=== PATIENT | female | born 1980 | race Caucasian/White ===

== ENCOUNTER 2016-12-25 08:55 | Inpatient (IN) | payer BC ==
[~2016-12-25 08:55] MED LIST: CITRIC ACID/SODIUM CITRATE 30 ML UNIT-DOSE CUP PO ONE; ELECTROLYTE-148 SOLN 1,000 ML IV ONE
[2016-12-25] MEDS: ELECTROLYTE-148 SOLN 1,000 ML IV SCH (10:15)
[2016-12-25 10:20] VITALS: BMI 44.9
[2016-12-25] MEDS ORDERED: ONDANSETRON 4 MG/2 ML VIAL IVPB PRN (10:29)
[2016-12-25] MEDS ORDERED: morphine SULFATE/Preservative Free 0.5 MG/ML (1cc Syringe) EP ONE (10:29)
[2016-12-25] MEDS ORDERED: TUBERCULIN PPD 5 TU/0.1ML SYRINGE (IN PATIENT USE ONLY) ID ONE (10:30)
--- NOTE | 2016-12-25 11:22 | HP ---
Past Medical History - Primary Care Physician PCP:: Wayne Odonnell - Admission Chief Complaint: 36yo P1 with at EGA 39w3d and prior C/S, marginal placenta previa, admitted for repeat section. History of Present Illness: AMA Morbid obesity Prior C/S Marginal previa History Source: Patient, Medical Record Limitations to Obtaining History: No Limitations - Past Medical History A/C TECH: No: Alzheimer's, CVA, Dementia, Migraine, Multiple Sclerosis, Peripheral Neuropathy, Parkinson's, Seizure, Syncope, TIA, Vertigo, Other Cardiovascular: No: AFIB, Aneurysm, Aortic Insufficiency, Aortic Stenosis, CAD, CHF, Deep Vein Thrombosis, HTN, Hyperlipdemia, [place], Mitral Insufficiency, Mitral Stenosis, Murmur, Pulmonary Hypertension, Other Pulmonary: No: Asthma, Bronchitis, Cancer, COPD, O2 Dependent, Pneumonia, Previously Intubated, Pulmonary Embolus, Pulmonary Fibrosis, Sleep Apnea, Other Gastrointestinal: No: Ascites, Cancer, Constipation, Crohn's Disease, Diverticulitis, Diverticulosis, Esophageal Varices, Gastritis, GERD, GI Bleed, Hemorrhoids, Hiatal Hernia, Inflamatory Bowel Disease, Irritable Bowel Disease, Pancreatitis, Peptic Ulcer Disease, Ulcerative Colitis, Other Hepatobiliary: No: Cirrhosis, Cholelithiasis, Cholecystitis, Choledocholithiasis , Hepatitis A, Hepatitis B, Hepatitis C, Other Renal/: No: Renal Failure, Renal Inusuff, BPH, Cancer, Hematuria, Hemodialysis , Neurogenic Bladder, Renal Calculi, UTI, Other ...: 2 ...Para: 1 ...Term: 1 ...: 0 ...Spon : 0 ...Induced : 0 ...Multiple Gestation: 0 ...LMP: 03/19/16 ... Weeks Gestation by Dates: 40.1 ...EDC by Dates: 12/25/15 ...EDC by Sono: 12/30/15 Heme/Onc: Yes: Anemia Infectious Disease: No: AIDS, C-Diff, Herpes Zoster, HIV, MRSA, STD's, Tuberculosis, VREF, Other Psych: No: Addictions, Anxiety, Bipolar, Depression, Panic, Psychosis, Schizophrenia, Other Musculoskeletal: No: Bursitis, Chronic low back pain, Hemiparesis, Hemiplegia, Osteoarthritis, Paraplegia, Other Rheumatology: No: Fibromyalgia, Gout, Lupus, Rheumatoid Arthritis, Sarcoidosis, Vasculitis, Other ENT: No: Allergic Rhinitis, Sinusitis, Other Endocrine: No: Willian's Disease, Bismarck's Disease, Diabetes Insipidus, Diabetes Mellitus, Hyperparathyroidism, Hyperthyroidism, Hypothyroidism, Osteopenia, SIADH, Other Dermatology: No: Basal Cell, Cellulitis, Eczema, Melanoma, Psoriasis, Squamous Cell, Other - Past Surgical History Past Surgical History: Yes: Hx Myomectomy: No Hx Transabdominal Cerclage: No - Smoking History Smoking history: Never smoked Have you smoked in the past 12 months: No Aproximately how many cigarettes per day: 0 - Alcohol/Substance Use Hx Alcohol Use: No History of Substance Use: reports: None - Social History Usual Living Arrangement: Yes: With Spouse, With Child ADL: Independent History of Recent Travel: No Home Medications - Allergies Allergies/Adverse Reactions: Allergies Allergy/AdvReac Type Severity Reaction Status Date / Time No Known Allergies Allergy Verified 09/01/13 15:20 - Home Medications Home Medications: Ambulatory Orders Vitamins (Sjr) - 1 tab PO DAILY 09/01/13 Acetaminophen W/ Codeine #3 [Tylenol # 3 -] 1 tab PO Q8H #30 tablet 09/07/13 Acetaminophen [Tylenol .Regular Strength -] 650 mg PO Q4H PRN #0 tablet Ibuprofen [Motrin -] 600 mg PO Q4H PRN #0 tablet 09/07/13 Family Disease History - Family Disease History Family History: Denies Review of Systems - Review of Systems Constitutional: reports: No Symptoms Eyes: reports: No Symptoms HENT: reports: No Symptoms Neck: reports: No Symptoms Cardiovascular: reports: No Symptoms Respiratory: reports: No Symptoms Gastrointestinal: reports: No Symptoms Genitourinary: reports: No Symptoms Breasts: reports: No Symptoms Reported Musculoskeletal: reports: No Symptoms Integumentary: reports: No Symptoms Neurological: reports: No Symptoms Endocrine: reports: No Symptoms Hematology/Lymphatic: reports: No Symptoms Psychiatric: reports: No Symptoms Pain Intensity: 0 Physical Exam - Maternity Vital Signs: Vital Signs Temperature 97.7 F 12/25/16 11:00 Pulse Rate 79 12/25/16 11:00 Respiratory Rate 18 12/25/16 11:00 Blood Pressure 118/54 12/25/16 11:00 O2 Sat by Pulse Oximetry (%) Constitutional: Yes: No Distress, Calm, Obese Eyes: Yes: WNL, Conjunctiva Clear HENT: Yes: WNL, Atraumatic, Normocephalic Neck: Yes: WNL, Supple, Trachea Midline Cardiovascular: Yes: WNL, Regular Rate and Rhythm Lungs: Clear to auscultation, Normal air movement Breast(s): Yes: WNL - Abdominal Exam/OB Fundal Height: 40 Number of Fetuses: Single Presentation: Vertex Contractions: No Monitor Mode: External Heart Rate (range): 140 Heart Rate Location: Midline Category: I Accelerations: Uniform Decelerations: None - Vaginal Exam/OB Vaginal Bleediing: No Speculum Exam: No Amniotic Membrane Status: Intact Presentation: Vertex/Position - Physical Exam Musculoskeletal: Yes: WNL Extremities: Yes: WNL Edema: Yes Edema: LLE: 1+, RLE: 1+ Integumentary: Yes: WNL Deep Tendon Reflex Grade: Normal +2 ...Motor Strength: WNL Psychiatric: Yes: WNL, Alert, Oriented Hemorrhage Risk Assessment - Risk Factors Medium Risk Factors: Yes: Obesity (BMI >40) High Risk Factors: Yes: Placenta previa, low lying Risk Score: 3 Risk Level: High Risk Imaging - Results Ultrasound: Report Reviewed Assessment/Plan 36yo P1 with at EGA 39w3d and prior C/S, marginal placenta previa, admitted for repeat section. The pt is not in labor, not bleeding. The fetus has Category I tracing and requires no intervention. We discussed the risks and benefits of C/S at length, including but not limited to scarring, pain , bleeding, infection, injury to underlying organs and structures, need for additional surgery to repair/treat any problems or complications, complications/injuries, etc. The pt verbalized her understanding and requested to proceed with surgery.
[2016-12-25] MEDS ORDERED: METHYLERGONOVINE MALEATE 0.2 MG/1 ML AMP IM PRN (12:20)
--- NOTE | 2016-12-25 12:59 | OP ---
Operative Note - Note: Operative Date: 12/25/16 Pre-Operative Diagnosis: at EGA 39w3d. Morbid Obesity. Marginal previa. Prior C/S Operation: Repeat LT C/S Findings: Normal uterus, ovaries, tubes. Multiple varicose venous complexes Post-Operative Diagnosis: Same as Pre-op Surgeon: Wayne Odonnell Globe Cleaner: Tonya Fallon (\) Anesthesiologist/EQUINE PHARMACOLOGY TECHNICIAN: Jamel Combs Anesthesia: Spinal Specimens Removed: Placenta Estimated Blood Loss (mls): 1,000 Drains & Tubes with Location: Liz cath Drains, Volume Out (mls): 200 Blood Volume Replaced (mls): 0 Fluid Volume Replaced (mls): 1,500 Operative Report Dictated: Yes
[2016-12-25 13:12] LABS: ARTERIAL BLD GAS O2 SATURATION 35.2 % (90-98.9); ARTERIAL BLOOD GAS BASE EXCESS 1.9 meq/l (-2-2); ARTERIAL BLOOD GAS HCO3 27.6 meq/L (22-26); ARTERIAL BLOOD GAS pH 7.36 (7.35-7.45)
[2016-12-25 13:14] LABS: LPM/O2% N; ON ANTICOAG? ROOM AIR; PT. ON O2? YES; TYPE OF O2 21%
[2016-12-25 13:15] LABS: ARTERIAL BLOOD GAS PO2 19.4 mmHg (80-100)
[2016-12-25] MEDS: OXYTOCIN 20 UNITS in 0.9% NS 1,000 ML IV SCH ×2 (14:26→21:43)
[2016-12-25] MEDS: IBUPROFEN 800 MG/8 ML IJ IVPB PRN (22:18)
[2016-12-26] MEDS: IBUPROFEN 800 MG/8 ML IJ IVPB PRN (06:37)
[2016-12-26 08:02] LABS: BASOPHIL 0.2 % (0-2.0); EOSINOPHIL 0.7 % (0-4.5); MCH 27.4 pg (25.7-33.7); MCHC 33.1 g/dl (32.0-36.0); MEAN CELL VOLUME 82.8 fl (80-96); MEAN PLT VOLUME 7.8 fl (7.5-11.1); NEUTROPHILS 72.6 % (42.8-82.8); PLATELET COUNT 203 K/MM3 (134-434); WHITE BLOOD COUNT 10.4 K/mm3 (4.0-10.0)
--- NOTE | 2016-12-26 08:47 | PN ---
Post Progress Note - Subjective Subjective: 36 yo P2 s/p Repeat c/s for marginal previa in bed, yao not d/saul, no flatus, c/o congestion, and hand numbness Post Day: 1 Type of Delivery: Repeat C/S Vital Signs: Vital Signs Temperature 99.2 F 12/26/16 06:30 Pulse Rate 68 12/26/16 06:30 Respiratory Rate 20 12/26/16 06:30 Blood Pressure 109/60 12/26/16 06:30 O2 Sat by Pulse Oximetry (%) 99 12/25/16 14:10 Breast Exam: Yes: Soft Uterus: Yes: Fundus Firm Incision: Yes: Dressing dry and intact Abdomen/GI: Yes: Abdomen soft Lochia: Yes: Rubra Lochia, amount: Small Extremities: Yes: Calves non-tender Activity: Other (in bed) - Labs Labs: CBC WBC 10.4 K/mm3 (4.0-10.0) H 12/26/16 06:00 RBC 3.14 M/mm3 (3.60-5.2) L D 12/26/16 06:00 Hgb 8.6 GM/dL (10.7-15.3) L D 12/26/16 06:00 Hct 26.0 % (32.4-45.2) L D 12/26/16 06:00 MCV 82.8 fl (80-96) 12/26/16 06:00 MCH 27.4 pg (25.7-33.7) 12/26/16 06:00 MCHC 33.1 g/dl (32.0-36.0) 12/26/16 06:00 RDW 15.0 % (11.6-15.6) 12/26/16 06:00 Plt Count 203 K/MM3 (134-434) D 12/26/16 06:00 MPV 7.8 fl (7.5-11.1) 12/26/16 06:00 Neutrophils % 72.6 % (42.8-82.8) 12/26/16 06:00 Lymphocytes % 14.2 % (8-40) 12/26/16 06:00 Monocytes % 12.3 % (3.8-10.2) H 12/26/16 06:00 Eosinophils % 0.7 % (0-4.5) 12/26/16 06:00 Basophils % 0.2 % (0-2.0) 12/26/16 06:00 Assessment/Plan 36 yo P2 s/p Repeat c/s for marginal previa VSS, Afibrile d/c yao, encourage ambulation Upper airway congestion - Musinex, Insentive spiromiter Hand numbness - Will d/c IV once voids Rh positive, no need for RhoGam H/H appropriate for PostOp cont. routine postop care
[2016-12-26] MEDS: ENOXAPARIN NA (PORCINE) 40 MG/0.4 ML DISP.SYRIN SQ SCH (09:30)
[2016-12-26] MEDS: PRENATAL VITAMINS W/ FOLIC ACID TABLET (FP) PO SCH (09:31)
[2016-12-26] MEDS: ELECTROLYTE-148 SOLN 1,000 ML IV SCH (09:50)
[2016-12-26] MEDS: guaiFENesin 600 MG TABLET.ER (FP) PO SCH ×2 (10:00→22:16)
[2016-12-26] MEDS: oxyCODONE HCL 5 MG TABLET PO PRN ×2 (11:24→16:14)
[2016-12-26] MEDS: SIMETHICONE 80 MG TAB.CHEW (FP) PO PRN ×3 (11:24→22:16)
[2016-12-26] MEDS: IBUPROFEN 600 MG TABLET (FP) PO PRN ×2 (11:25→16:12)
[2016-12-26] MEDS ORDERED: BISACODYL 10 MG SUPP.RECT RC PRN (12:21)
[2016-12-26] MEDS: OXYTOCIN 20 UNITS in 0.9% NS 1,000 ML IV SCH (12:30)
[2016-12-26] MEDS ORDERED: DIPHTH,PERTUSS(ACELL),TET 0.5 ML DISP.SYRIN IM ONE (14:00)
--- NOTE | 2016-12-26 14:38 | OP ---
DATE OF OPERATION: 12/25/2016 POSTOPERATIVE DIAGNOSIS: at estimated gestational age of 39 weeks and 3 days, maternal morbid obesity, marginal placenta previa, previous section. POSTOPERATIVE DIAGNOSIS: at estimated gestational age of 39 weeks and 3 days, delivered. Maternal morbid obesity, marginal placenta previa, previous section. PROCEDURE: Repeat low transverse section via Pfannenstiel skin incision. SURGEON: Wayne Odonnell MD SKIVER OPERATOR: Tonya Fallon MD INDICATIONS FOR SKIVER OPERATOR: Multiple patient comorbidities and surgical complexity requiring operating room surgical technologist for patient safety and to enable performance of the procedure. ANESTHESIA: Jamel Combs MD ANESTHESIA: Spinal. ESTIMATED BLOOD LOSS: 1000 mL. URINE OUTPUT: 200 mL. INTRAVENOUS FLUIDS: 1500 mL of crystalloids. PATHOLOGY: Placenta. FINDINGS: Live baby girl in vertex presentation. No meconium in amniotic fluid. Multiple venous varicose complexes throughout, including subcutaneous tissue and around the lower uterine segment. Normal ovaries, fallopian tubes, and normal uterus above lower uterine segment. DESCRIPTION OF PROCEDURE: The patient was met preoperatively. Risks, benefits, alternatives of surgery were discussed in detail. All questions were answered. The patient was then brought to the OR with IV running. She was placed on the surgical table in the sitting position. The spinal anesthesia was achieved without difficulty. The patient was then placed in a supine position with leftward tilt. She was prepped and draped in the usual sterile fashion. A Liz catheter was inserted and left to drain to gravity. The timeout was conducted as per standard protocol. The surgeons then proceeded with the operation. A Pfannenstiel skin incision was made with a knife along the prior scar. The incision was carried down to the level of fascia. There were multiple venous sinuses and varicose complexes subcutaneously. Good hemostasis was maintained. The fascia was incised in the midline, and the incision was extended bilaterally using Tristan scissors. The fascia was then dissected away from the rectus muscles superiorly and inferiorly. The rectus muscle was in the midline. The peritoneum was identified and entered sharply. The peritoneal incision was extended superiorly and inferiorly. The bladder peritoneum was dissected away from the lower uterine segment using sharp dissection. The bladder was then reflected downwards. The uterus was incised transversely in the lower uterine segment. The uterine incision was extended bilaterally using bandage scissors. The baby was delivered from vertex presentation without complications. The umbilical cord was clamped and cut. The baby was handed to the awaiting break out worker. The placenta was delivered manually. The placenta was noted to be more densely adherent in the lower uterine segment; however, it did not clearly appear to be in accreta. Once the placenta was removed, the uterus was cleared of all clots and debris. The placental bed appeared to be well hemostatic. The uterine incision was repaired using a 0 Biosyn suture with a running locking stitch. The uterine incision was then imbricated using a 0 Biosyn suture. The bladder peritoneum was approximated using a 0 Biosyn suture. The operative site was irrigated using copious amounts of normal saline. Once the saline was aspirated, good hemostasis was confirmed. The peritoneum was then closed using a 2-0 chromic suture. The rectus muscles were approximated in the midline using several interrupted 2-0 chromic sutures. The fascia was closed using a 0 Vicryl suture with good hemostasis and approximation. The subcutaneous tissues were approximated using several interrupted 0 chromic sutures to eliminate space. The skin was closed using a 4-0 Vicryl suture using a subcutaneous stitch. The patient tolerated the procedure well. She was transferred to recovery room in stable condition. Sponge, lap, and instrument counts were correct. Aris [id number]
--- NOTE | 2016-12-26 14:52 | PN ---
Progress Note, Physician Chief Complaint: s/p c section under spinal anesthesia History of Present Illness: post op day one, duramorph for post op pain control - Current Medication List Current Medications: Active Medications Acetaminophen (Tylenol -) 650 mg PO Q4H PRN PRN Reason: FEVER OR PAIN Bisacodyl (Dulcolax Suppository -) 10 mg RC PRN PRN PRN Reason: CONSTIPATION Diphenhydramine HCl (Benadryl Injection -) 25 mg IVPUSH Q4H PRN PRN Reason: Pruritis Last Admin: 12/26/16 03:38 Dose: 25 mg Enoxaparin Sodium (Lovenox -) 40 mg SQ DAILY [facility] Last Admin: 12/26/16 09:30 Dose: 40 mg Ferrous Sulfate (Feosol -) 325 mg PO BID [facility] Guaifenesin (Mucinex -) 600 mg PO BID [facility] Last Admin: 12/26/16 10:00 Dose: 600 mg Parenteral Electrolytes (Plasma-Lyte 148 -) 1,000 mls @ 125 mls/hr IV ASDIR [facility] Last Admin: 12/25/16 10:15 Dose: 125 mls/hr Oxytocin/Sodium Chloride (Normal Saline+20 Units Oxytocin -) 1,000 mls @ 125 mls/hr IV ASDIR [facility] Last Admin: 12/25/16 21:43 Dose: 125 mls/hr Ibuprofen (Caldolor Injection -) 600 mg IVPB Q8H PRN PRN Reason: FEVER Last Admin: 12/26/16 06:37 Dose: 600 mg Ibuprofen (Motrin -) 600 mg PO Q4H PRN PRN Reason: PAIN Last Admin: 12/26/16 11:25 Dose: 600 mg Methylergonovine Maleate (Methergine Injection -) 0.2 mg IM Q4H PRN PRN Reason: Excessive Bleeding (L&D) Oxycodone HCl (Roxicodone -) 5 mg PO Q4H PRN Last Admin: 12/26/16 11:24 Dose: 5 mg Oxycodone HCl (Roxicodone -) 10 mg PO Q4H PRN PRN Reason: PAIN LEVEL 6-10 Multivit/Folic Acid/Iron ( Vitamins (Sjr) -) 1 tab PO DAILY [facility] Last Admin: 12/26/16 09:31 Dose: Not Given Simethicone (Mylicon -) 80 mg PO Q4H PRN PRN Reason: GAS Last Admin: 12/26/16 11:24 Dose: 80 mg - Objective Vital Signs: Vital Signs Temperature 98.3 F 12/26/16 09:00 Pulse Rate 71 12/26/16 09:00 Respiratory Rate 20 12/26/16 11:53 Blood Pressure 108/60 12/26/16 09:00 O2 Sat by Pulse Oximetry (%) 99 12/25/16 14:10 Constitutional: Yes: Well Nourished Eyes: Yes: WNL, Other Neck: Yes: WNL Neurological: Yes: WNL Labs: CBC, BMP 12/26/16 06:00 Assessment/Plan patient doing well, no adverse effect of anesthetic, complain of itching, given benadryl, pain controlled, Dept of anesthesia will sign off care at this time
[2016-12-26] MEDS ORDERED: KETOROLAC TROMETHAMINE 30 MG/1 ML VIAL IM ONE (20:15)
--- NOTE | 2016-12-26 20:20 | PN ---
Progress Note (short form) - Note Progress Note: Pt is c/o incisional pain that prevents her from ambulating easily. She took Motrin and Codein w/o adequate relief at 4:15pm. VSS, afebrile Abd: soft, ND, (+) BS Incision: dressing in place, C/D/I Lochia: scant Hct 26% A/P: pain mgt options discussed. No evidence of internal bleeding. Will try Toradol x 1. Risks of bleeding assessed.
[2016-12-26] MEDS: FERROUS SO4 325 MG TABLET (FP) PO SCH (22:16)
[2016-12-27] MEDS: ACETAMINOPHEN 325 MG TABLET (FP) PO PRN ×2 (02:12→08:48)
[2016-12-27] MEDS: SIMETHICONE 80 MG TAB.CHEW (FP) PO PRN ×4 (02:12→19:31)
[2016-12-27] MEDS: oxyCODONE HCL 5 MG TABLET PO PRN ×4 (02:13→19:32)
[2016-12-27] MEDS: FERROUS SO4 325 MG TABLET (FP) PO SCH ×2 (09:49→22:12)
[2016-12-27] MEDS: PRENATAL VITAMINS W/ FOLIC ACID TABLET (FP) PO SCH (09:49)
[2016-12-27] MEDS: ENOXAPARIN NA (PORCINE) 40 MG/0.4 ML DISP.SYRIN SQ SCH (09:49)
[2016-12-27] MEDS ORDERED: DIPHTH,PERTUSS(ACELL),TET 0.5 ML DISP.SYRIN IM ONE (10:00)
[2016-12-27] MEDS: guaiFENesin 600 MG TABLET.ER (FP) PO SCH ×2 (10:27→22:12)
[2016-12-27] MEDS: IBUPROFEN 600 MG TABLET (FP) PO PRN ×2 (13:05→19:31)
--- NOTE | 2016-12-27 16:45 | PN ---
Post Progress Note - Subjective Subjective: No complaints, some incision pain. Post Day: 2 Type of Delivery: Repeat C/S Vital Signs: Vital Signs Temperature 98.0 F 12/27/16 10:00 Pulse Rate 86 12/27/16 10:00 Respiratory Rate 20 12/27/16 10:00 Blood Pressure 108/59 12/27/16 10:00 O2 Sat by Pulse Oximetry (%) 99 12/25/16 14:10 Breast Exam: Yes: Soft Uterus: Yes: Fundus Firm, Fundus below umbilicus, Non-tender Incision: Yes: Sutures intact Abdomen/GI: Yes: Abdomen soft, Passing flatus, Tolerating PO Lochia: Yes: Rubra Lochia, amount: Small Extremities: Yes: Calves non-tender, Edema Perineum: Yes: Intact Activity: Ambulating - Labs Labs: CBC WBC 10.4 K/mm3 (4.0-10.0) H 12/26/16 06:00 RBC 3.14 M/mm3 (3.60-5.2) L D 12/26/16 06:00 Hgb 8.6 GM/dL (10.7-15.3) L D 12/26/16 06:00 Hct 26.0 % (32.4-45.2) L D 12/26/16 06:00 MCV 82.8 fl (80-96) 12/26/16 06:00 MCH 27.4 pg (25.7-33.7) 12/26/16 06:00 MCHC 33.1 g/dl (32.0-36.0) 12/26/16 06:00 RDW 15.0 % (11.6-15.6) 12/26/16 06:00 Plt Count 203 K/MM3 (134-434) D 12/26/16 06:00 MPV 7.8 fl (7.5-11.1) 12/26/16 06:00 Neutrophils % 72.6 % (42.8-82.8) 12/26/16 06:00 Lymphocytes % 14.2 % (8-40) 12/26/16 06:00 Monocytes % 12.3 % (3.8-10.2) H 12/26/16 06:00 Eosinophils % 0.7 % (0-4.5) 12/26/16 06:00 Basophils % 0.2 % (0-2.0) 12/26/16 06:00 Assessment/Plan 36yo P2 s/p primary LT C/S, doing well stable, afebrile. care instructions reviewed. Continue routine postop care. Ambulation encouraged.
[2016-12-28] MEDS: oxyCODONE HCL 5 MG TABLET PO PRN ×3 (00:18→14:04)
[2016-12-28] MEDS: IBUPROFEN 600 MG TABLET (FP) PO PRN ×2 (00:18→19:31)
[2016-12-28] MEDS: SIMETHICONE 80 MG TAB.CHEW (FP) PO PRN ×4 (00:18→19:31)
[2016-12-28] MEDS: ACETAMINOPHEN 325 MG TABLET (FP) PO PRN ×3 (07:27→19:30)
[2016-12-28 07:41] LABS: BASOPHIL 0.2 % (0-2.0); EOSINOPHIL 1.4 % (0-4.5); MCHC 32.9 g/dl (32.0-36.0); MEAN PLT VOLUME 7.5 fl (7.5-11.1); NEUTROPHILS 69.9 % (42.8-82.8); PLATELET COUNT 275 K/MM3 (134-434); RDW 14.8 % (11.6-15.6); WHITE BLOOD COUNT 10.2 K/mm3 (4.0-10.0)
[2016-12-28] MEDS ORDERED: oxyCODONE HCL 5 MG TABLET PO PRN ×2 (09:49)
--- NOTE | 2016-12-28 09:54 | PN ---
Post Progress Note - Subjective Subjective: Patient without acute complaints. Reports tolerating oral intake without nausea or vomiting. Ambulating without dizziness. Denies fevers or chills. Pain well controlled with oral pain medication. without difficulty. Passing flatus. Post Day: 3 Type of Delivery: Repeat C/S Vital Signs: Vital Signs Temperature 98.3 F 12/28/16 07:20 Pulse Rate 75 12/28/16 07:20 Respiratory Rate 20 12/28/16 07:20 Blood Pressure 127/65 12/28/16 07:20 O2 Sat by Pulse Oximetry (%) 99 12/25/16 14:10 Breast Exam: Yes: Engorged Uterus: Yes: Fundus Firm Incision: Yes: Sutures intact. No: Redness, Oozing Abdomen/GI: Yes: Abdomen soft, Tender (incisional), Passing flatus, Tolerating PO Lochia: Yes: Serosa Lochia, amount: Small Extremities: Yes: Calves non-tender, Edema (trace) Activity: Ambulating - Labs Labs: CBC WBC 10.2 K/mm3 (4.0-10.0) H 12/28/16 06:00 RBC 3.16 M/mm3 (3.60-5.2) L 12/28/16 06:00 Hgb 8.5 GM/dL (10.7-15.3) L 12/28/16 06:00 Hct 25.9 % (32.4-45.2) L 12/28/16 06:00 MCV 82.0 fl (80-96) 12/28/16 06:00 MCH 27.0 pg (25.7-33.7) 12/28/16 06:00 MCHC 32.9 g/dl (32.0-36.0) 12/28/16 06:00 RDW 14.8 % (11.6-15.6) 12/28/16 06:00 Plt Count 275 K/MM3 (134-434) D 12/28/16 06:00 MPV 7.5 fl (7.5-11.1) 12/28/16 06:00 Neutrophils % 69.9 % (42.8-82.8) 12/28/16 06:00 Lymphocytes % 19.6 % (8-40) D 12/28/16 06:00 Monocytes % 8.9 % (3.8-10.2) 12/28/16 06:00 Eosinophils % 1.4 % (0-4.5) D 12/28/16 06:00 Basophils % 0.2 % (0-2.0) 12/28/16 06:00 Assessment/Plan 36 yo POD #3 s/p repeat CD, afebrile, vital signs stable, mild asymptomatic anemia, doing well 1. Continue routine postoperative care. 2. Encourage ambulation and incentive spirometer use 3. Continue oral pain medication 4. Anticipate discharge home postoperative day #4
[2016-12-28] MEDS: ENOXAPARIN NA (PORCINE) 40 MG/0.4 ML DISP.SYRIN SQ SCH (10:25)
[2016-12-28] MEDS: guaiFENesin 600 MG TABLET.ER (FP) PO SCH ×2 (10:25→22:03)
[2016-12-28] MEDS: FERROUS SO4 325 MG TABLET (FP) PO SCH ×2 (10:25→22:03)
[2016-12-28] MEDS: PRENATAL VITAMINS W/ FOLIC ACID TABLET (FP) PO SCH (10:25)
[2016-12-29] MEDS: SIMETHICONE 80 MG TAB.CHEW (FP) PO PRN ×2 (00:32→09:39)
[2016-12-29] MEDS: IBUPROFEN 600 MG TABLET (FP) PO PRN ×2 (00:32→09:39)
[2016-12-29] MEDS: ACETAMINOPHEN 325 MG TABLET (FP) PO PRN ×2 (00:32→09:39)
[2016-12-29 07:38] VITALS: BP 131/72; PULSE 76; TEMP 98.3
--- NOTE | 2016-12-29 08:15 | DS ---
Physical Exam-ALL ROUND BUTCHER Vital Signs: Vital Signs Temperature 98.3 F 12/29/16 07:36 Pulse Rate 76 12/29/16 07:36 Respiratory Rate 20 12/29/16 07:36 Blood Pressure 131/72 12/29/16 07:36 O2 Sat by Pulse Oximetry (%) 99 12/25/16 14:10 Constitutional: Yes: Well Nourished, No Distress, Calm Eyes: Yes: WNL, Conjunctiva Clear, EOM Intact HENT: Yes: WNL, Atraumatic, Normocephalic Neck: Yes: WNL, Supple, Trachea Midline Cardiovascular: Yes: WNL, Regular Rate and Rhythm Respiratory: Yes: WNL, Regular, CTA Bilaterally Gastrointestinal: Yes: WNL ...Rectal Exam: Yes: WNL Renal/: Yes: WNL ....Post : Yes: Uterus firm, Uterus non-tender, Slight lochia rubra Breast(s): Yes: WNL Musculoskeletal: Yes: WNL Extremities: Yes: WNL Edema: LLE: Trace, RLE: Trace Integumentary: Yes: WNL Wound/Incision: Yes: Clean/Dry, Well Approximated, Sutures Intact Neurological: Yes: WNL, Alert, Oriented ...Motor Strength: WNL Psychiatric: Yes: WNL, Alert, Oriented Labs: CBC, BMP 12/28/16 06:00 Delivery - Delivery Section: Repeat, Low Flap Transverse Type of Anesthesia: Spinal Episiotomy/Laceration: None EBL (cc): 1,000 Delivery, Single - Stages of Labor Date of Delivery: 12/25/16 Time of Delivery: 11:49 Time Placenta Delivered: 11:50 Placenta: Yes: Expressed - Condition of Infant Sanding Supervisor/Sales Agent Protective Service Present: Yes Name: Nani Quinones Gender: Female Weight: 8 lb 3 oz Position: Left, OT Total Hours ROM (Hrs/Mins): 0/2 - 1 Minute Total Score: 9 5 Minutes Total Score: 9 - [place] Feeding Plan Initial Plan: Elected not to breastfeed exclusively throughout hospitalization Discharge Summary Reason For Visit: REPEAT C SECTION Procedures: Principal: repeat LST c/s Condition: Good - Instructions Diet, Activity, Other Instructions: regular diet, follow up office 1 week Referrals: Wayne Odonnell MD [Staff Physician] - Disposition: HOME - Home Medications Comprehensive Discharge Medication List: Ambulatory Orders Vitamins (Sjr) - 1 tab PO DAILY 09/01/13 Ibuprofen [Motrin -] 600 mg PO QID #28 tablet 12/29/16
[2016-12-29] MEDS: ENOXAPARIN NA (PORCINE) 40 MG/0.4 ML DISP.SYRIN SQ SCH (09:30)
[2016-12-29] MEDS: PRENATAL VITAMINS W/ FOLIC ACID TABLET (FP) PO SCH (09:30)
[2016-12-29] MEDS: FERROUS SO4 325 MG TABLET (FP) PO SCH (09:30)
[2016-12-29] MEDS: guaiFENesin 600 MG TABLET.ER (FP) PO SCH (09:30)
[2016-12-29] MEDS: oxyCODONE HCL 5 MG TABLET PO PRN (09:41)
--- NOTE | 2016-12-29 15:35 | PATH ---
Surgical Pathology Report Patient Name: MIRANDA SIERRA [facility]. Rec. #: [id number] /Age/Gender: 1980 (Age: 36) / F Account: [id number] Location: [facility] OBS/RN PROGRESSIVE CARE Taken: 12/25/2016 Received: 12/26/2016 Reported: 12/29/2016 Physicians: Wayne Odonnell M.D. Specimen(s) Received PLACENTA Clinical History 39.3 weeks for repeat Placenta previa Final Diagnosis PLACENTA, DELIVERY: FOCALLY DISRUPTED THIRD TRIMESTER PLACENTA WITH INTERVILLOUS FIBRIN DEPOSITION, BUT FOCAL CALCIFICATION, THREE VESSEL UMBILICAL CORD AND UNREMARKABLE PLACENTAL MEMBRANES. Electronically Signed Juan M Schroeder M.D. Gross Description The specimen is received fresh labeled placenta and is a 700 gram, 21.0 x 20.0 x 2.3 cm. placenta with attached membranes and umbilical cord. The attached membranes are melendez, translucent with focal opacities and insert marginally. The umbilical cord measures 12 cm. in length and averages 1.2 cm. in diameter. The cord inserts at the margin. No true knots or strictures are identified. Cut surface of the umbilical cord reveals 3 vessels. The surface is muñoz blue with moderate fibrin deposition and appropriate caliber vessels. The maternal surface is red-brown with focal defects. Sectioning reveals red-brown, spongy parenchyma. No lesions are identified. Industrial Real Estate Agent sections are submitted in three cassettes as follows: 1- membrane rolls and umbilical cord; 2-3- full thickness sections of placenta. /12/27/2016 [facility]/27/2016
== END 2016-12-29 12:10 | disposition home or self-care (01) | DRG 765 ==
LOC: JLDR 08:55 → J3W 14:57
PROVIDERS: ADMIT Obstetrics & Gynecology; ATTEND Obstetrics & Gynecology
PROC: 10D00Z1 Extraction of Products of Conception, Low, Open Approach (ICD-10-PCS; principal; 2016-12-25)
DX: O44.03 Complete placenta previa NOS or without hemorrhage, third trimester (principal); Z68.42 Body mass index [BMI] 45.0-49.9, adult; O34.211 Maternal care for low transverse scar from previous cesarean delivery; O99.214 Obesity complicating childbirth; E66.01 Morbid (severe) obesity due to excess calories; Z3A.39 39 weeks gestation of pregnancy; Z37.0 Single live birth
CPT/HCPCS: 36415; 36600; 82803; 85025; 88307-TC; 90715; 94010

== ENCOUNTER 2017-01-13 13:57 | Day surgery (SDC) | payer BC ==
[2017-01-13 14:09] VITALS: BMI 39.9
--- NOTE | 2017-01-13 14:16 | PDOC ---
History of Present Illness - General Chief Complaint: Vaginal Bleeding Stated Complaint: PCP SENT Time Seen by Provider: 01/13/17 14:15 - History of Present Illness Initial Comments: 01/13/17 15:20 "The patient is a 36 year old female, , with a significant past medical history of 12/25, sent by obgyn to the Emergency Department with lower abdominal pain, vaginal bleeding, and bilateral lower extremity pain. The patient reports that she had a on 12/25 and has been bleeding vaginal since, though the bleeding has worsened significantly over the past week, using 10-15 pads per day She admits to pelvic pain and lower abdominal pain over the past week. She also admits to bilateral lower extremity pain which she describes as at the back of her thighs and calves, though she denies unusual swelling. The patient reports chills and fatigue, but denies fever. She states that she was at her obgyn today who suggested she come to the ER for d&c. The patient admits that her incision site is healing well. Patient states that she is . The patient denies chest pain, shortness of breath, and diaphoresis. Patient denies dysuria, or urinary problems. Patient denies headache, or visual changes. Patient denies nausea, vomiting, and diarrhea. Per convo with Dr. Olivo, pt was seen in clinic today and found to have retained POCs on ultrasound. Pt to go to OR today for D&C. OBYGN: Dr. Oneida Olivo, Surgical Hx: x2 " Past History - Past Medical History Allergies/Adverse Reactions: Allergies Allergy/AdvReac Type Severity Reaction Status Date / Time No Known Allergies Allergy Verified 01/13/17 14:05 Home Medications: Ambulatory Orders NK [No Known Home Medication] 01/13/17 Asthma: No Cancer: No Cardiac Disorders: No Diabetes: No HTN: No Seizures: No Thyroid Disease: No Other medical history: DENIES. - Psycho/Social/Smoking Cessation Hx Anxiety: No Suicidal Ideation: No Smoking Status: No Smoking History: Never smoked Have you smoked in the past 12 months: No Number of Cigarettes Smoked Daily: 0 Hx Alcohol Use: No Drug/Substance Use Hx: No Hx Substance Use Treatment: No *Physical Exam - Vital Signs Last Vital Signs Temp Pulse Resp BP Pulse Ox 98.4 F 71 19 140/72 99 01/13/17 14:05 01/13/17 14:05 01/13/17 14:05 01/13/17 14:05 01/13/17 14:05 - Physical Exam Comments: 01/13/17 15:30 "GENERAL: Well developed, well nourished. Awake and alert. No acute distress. HEENT: Normocephalic, atraumatic. PERRLA, EOMI. No conjunctival pallor. Sclera are non- icteric. Moist mucous membranes. Oropharynx is clear. NECK: Supple. Full ROM. No JVD. Carotid pulses 2+ and symmetric, without bruits. No thyromegaly. No lymphadenopathy. CARDIOVASCULAR: Regular rate and rhythm. No murmurs, rubs, or gallops. Distal pulses are 2+ and symmetric. PULMONARY: No evidence of respiratory distress. Lungs clear to auscultation bilaterally. No wheezing, rales or rhonchi. ABDOMINAL: Mild suprapubic tenderness. Soft. Non-distended. No rebound or guarding. No organomegaly. scar healing well, no erythema, drainage, or tenderness. Normoactive bowel sounds. : Blood in vaginal vault, oozing from cervical os, os closed, no CMT MUSCULOSKELETAL Normal range of motion at all joints. No bony deformities or tenderness. No CVA tenderness. EXTREMITIES: No cyanosis. No clubbing. No edema. No calf tenderness. SKIN: Warm and dry. Normal capillary refill. No rashes. No jaundice. NEUROLOGICAL: Alert, awake, appropriate. Cranial nerves 2-12 intact. No deficits to light touch in face, upper extremities and lower extremities. No motor deficits in the in face, upper extremities and lower extremities. Normal speech. PSYCHIATRIC: Cooperative. Good eye contact. Appropriate mood and affect. " 01/13/17 15:34 ED Treatment Course - LABORATORY CBC & Chemistry Diagram: 01/13/17 15:05 01/13/17 15:05 Medical Decision Making - Medical Decision Making 01/13/17 15:32 36 F with vaginal bleeding s/p 2.5 weeks ago. Found to have retained POCs in clinic today. Pt HD stable. - Labs, T&S - OR for D&C - BLE dopplers for leg pain, though suspicion for DVT is low given normal leg exam *DC/Admit/Observation/Transfer Diagnosis at time of Disposition: Retained products of conception - Discharge Dispostion Admit: Yes - Attestations Physician Attestion: 01/13/17 15:34 I, Dr. Kaiden Vallejo MD, attest that this document has been prepared under my direction and personally reviewed by me in its entirety. I further attest, that it accurately reflects all work, treatment, procedures and medical decision -making performed by me.
[2017-01-13 15:11] LABS: BASOPHIL 0.5 % (0-2.0); EOSINOPHIL 0.6 % (0-4.5); MCH 26.2 pg (25.7-33.7); MCHC 32.8 g/dl (32.0-36.0); MEAN PLT VOLUME 7.2 fl (7.5-11.1); NEUTROPHILS 77.5 % (42.8-82.8); PLATELET COUNT 370 K/MM3 (134-434); RDW 14.4 % (11.6-15.6); WHITE BLOOD COUNT 9.6 K/mm3 (4.0-10.0)
[2017-01-13 15:28] LABS: INR 1.11 (0.82-1.09); PROTHROMBIN TIME (PATIENT) 12.2 SEC (9.98-11.88)
[2017-01-13 15:38] LABS: ALBUMIN 3.4 g/dl (3.4-5.0); ALK PHOS 75 U/L (45-117); ANION GAP 6 (8-16); BILIRUBIN,TOTAL 0.5 mg/dL (0.2-1.0); CALCIUM 8.7 mg/dL (8.5-10.1); CO2 27 mmol/L (21-32); CREATININE 0.7 mg/dL (0.55-1.02); GLUCOSE,RANDOM 76 mg/dL (74-106); SGOT/AST 8 U/L (15-37); SGPT/ALT 21 U/L (12-78); TOT PROT 6.6 g/dl (6.4-8.2)
[2017-01-13 16:22] LABS: URINE APPEARANCE SLCLOUDY; URINE BILIRUBIN NEGATIVE (NEGATIVE); URINE BLOOD 3+ (NEGATIVE); URINE COLOR RED; URINE GLUCOSE (UA) NEGATIVE (NEGATIVE); URINE KETONE TRACE (NEGATIVE); URINE NITRITE NEGATIVE (NEGATIVE); URINE UROBILINOGEN NEGATIVE mg/dL (0.2-1.0)
[2017-01-13 16:32] LABS: URINE LEUK ESTERASE 3+ (NEGATIVE); URINE PROTEIN 1+ (NEGATIVE)
[2017-01-13 16:35] LABS: URINE BACTERIA RARE /hpf (NONE SEEN); URINE MUCUS RARE; URINE RBC 62 /hpf (0-3); URINE WBC 152 /hpf (3-5)
--- NOTE | 2017-01-13 17:04 | HP ---
Admitting History and Physical - Primary Care Physician PCP: Wayne Odonnell - Admission Chief Complaint: 36 yo P2 now s/p Repeat LST c/section 12/25/16, uncomplicated PP course, seen emergently today in the office due to recurrent VB, cramping, found to have large blood clot in SY, open os, sent to ER for evaluation of retained POC; no Official US performed as per my request. Patient also c/o lower extremity swelling and pain, requested BL low extremity doppler History of Present Illness: 1.Morbid Obesity 2. h/o Marginal previa 3. AMA 4. c/s x 2 History Source: Patient Limitations to Obtaining History: No Limitations - Past Medical History Heme/Onc: Yes: Anemia - Past Surgical History Past Surgical History: Yes: (x2) - Smoking History Smoking history: Never smoked Have you smoked in the past 12 months: No Aproximately how many cigarettes per day: 0 - Alcohol/Substance Use Hx Alcohol Use: No History of Substance Use: reports: None - Social History ADL: Independent History of Recent Travel: No Home Medications - Allergies Allergies/Adverse Reactions: Allergies Allergy/AdvReac Type Severity Reaction Status Date / Time No Known Allergies Allergy Verified 01/13/17 14:05 - Home Medications Home Medications: Ambulatory Orders NK [No Known Home Medication] 01/13/17 Review of Systems - Review of Systems Constitutional: reports: No Symptoms HENT: reports: No Symptoms Neck: reports: No Symptoms Cardiovascular: reports: No Symptoms Respiratory: reports: No Symptoms Gastrointestinal: reports: No Symptoms Genitourinary: reports: No Symptoms Breasts: reports: No Symptoms Reported () Musculoskeletal: reports: No Symptoms Integumentary: reports: No Symptoms Neurological: reports: No Symptoms Endocrine: reports: No Symptoms Hematology/Lymphatic: reports: Excessive Bleeding (vaginal, soakin 5-6 pads) Psychiatric: reports: No Symptoms Physical Examination Vital Signs: Vital Signs Temperature 98.4 F 01/13/17 14:05 Pulse Rate 71 01/13/17 14:05 Respiratory Rate 19 01/13/17 14:05 Blood Pressure 140/72 01/13/17 14:05 O2 Sat by Pulse Oximetry (%) 99 01/13/17 14:05 Constitutional: Yes: Well Nourished, Obese Eyes: Yes: WNL HENT: Yes: WNL Neck: Yes: WNL Cardiovascular: Yes: WNL Respiratory: Yes: WNL Gastrointestinal: Yes: WNL Renal/: Yes: WNL Breast(s): Yes: WNL Musculoskeletal: Yes: WNL Extremities: Yes: WNL Edema: Yes Integumentary: Yes: WNL Wound/Incision: Yes: Clean/Dry, Well Approximated Neurological: Yes: WNL ...Motor Strength: WNL Psychiatric: Yes: WNL Labs: CBC, BMP 01/13/17 15:05 01/13/17 15:05 Assessment/Plan 36 yo P2 now s/p Repeat LST c/section with retained POC, bleeding, open os, no s /s of infection lower extremity, edema, erythema Admit for Suction/Curettage Procedure explained to the patient, risk of uterine perforation, infection, and Asherman's syndrome d/w patient, consent signed, all questions answered. H/H stable, patient is hemodynamicaly stable For Lower extremity Doppler after the procedure Plan to d/c home once Doppler done and negative
--- NOTE | 2017-01-13 17:04 | OP ---
Operative Note - Note: Operative Date: 01/13/17 Pre-Operative Diagnosis: 36 yo P2 with retained POC, Vaginal bleeding Operation: Suction, D&C Findings: 200cc of blood in the SY and POC mainly in left SY Uterus contracted after Suction and Pitocin Flagyl 500mg and Ancef 1gm intra op Post-Operative Diagnosis: Same as Pre-op Surgeon: Oneida Olivo Anesthesiologist/PRODUCTION ROUSTABOUT: Rizwana Pozo Anesthesia: MAC Specimens Removed: 1.Products of conseption Estimated Blood Loss (mls): 200 Fluid Volume Replaced (mls): 400
[2017-01-13] MEDS ORDERED: PROPOFOL 20 ML ONE ×2 (17:10→17:38)
[2017-01-13] MEDS ORDERED: MIDAZOLAM HCL 2 MG/2 ML SINGLE DOSE VIAL ONE (17:10)
[2017-01-13] MEDS ORDERED: ceFAZolin SODIUM 1 GM VIAL IVPB ONE (17:31)
[2017-01-13] MEDS ORDERED: METRONIDAZOLE 500 MG PREMIXED 100 ML IVPB ONE (17:36)
[2017-01-13] MEDS ORDERED: ceFAZolin SODIUM 1 GM VIAL ONE (17:37)
[2017-01-13] MEDS ORDERED: OXYTOCIN 10 UNITS/ML VIAL ONE (17:48)
[2017-01-13] MEDS ORDERED: ONDANSETRON 4 MG/2 ML VIAL IVPB PRN (18:06)
[2017-01-13] MEDS ORDERED: oxyCODONE HCL 5 MG TABLET PO PRN (18:06)
[2017-01-13] MEDS ORDERED: IBUPROFEN 600 MG TABLET (FP) PO PRN (18:06)
[2017-01-13] MEDS ORDERED: IBUPROFEN 800 MG/8 ML IJ IVPB PRN (18:06)
[2017-01-13] MEDS ORDERED: ELECTROLYTE-148 SOLN 1,000 ML IV SCH (18:15)
[2017-01-13] MEDS ORDERED: ONDANSETRON 4 MG/2 ML VIAL IVPUSH PRN (18:16)
[2017-01-13] MEDS ORDERED: KETOROLAC TROMETHAMINE 30 MG/1 ML VIAL IVPUSH ONE (18:16)
[2017-01-13] MEDS ORDERED: LACTATED RINGERS SOLUTION 1,000 ML IV SCH (18:30)
[2017-01-13] MEDS ORDERED: KETOROLAC TROMETHAMINE 30 MG/1 ML VIAL ONE (18:59)
[2017-01-13 20:57] VITALS: BP 121/70; PULSE 61; TEMP 97
--- NOTE | 2017-01-15 09:20 | OP ---
DATE OF OPERATION: 01/13/2017 PREOPERATIVE DIAGNOSES: A 36-year-old para 2, postoperative day number 19 post repeat with retained product of conception, vaginal bleeding. POSTOPERATIVE DIAGNOSES: A 36-year-old para 2, postoperative day number 19 post repeat with retained product of conception, vaginal bleeding. OPERATION: Suction, curettage. FINDINGS: 200 mL of blood in lower uterine segment and products of conception mainly in left lower uterine segment. Uterus contracted after suction and Pitocin. Patient received Flagyl 500 mg and Ancef 1 gm intraoperatively. SURGEON: Oneida Olivo M.D. ANESTHESIOLOGIST: Dr. Rizwana Pozo ANESTHESIA: General sedation. SPECIMENS: Removed products of conception. DESCRIPTION OF THE OPERATIVE PROCEDURE: After showing informed consent patient was brought to the operating room where she was placed in dorsal lithotomy position. Perineum and vagina were prepped with Betadine and draped in sterile fashion. Overton speculum was placed in the vagina. Cervix was visualized and found to be open. Anterior cervical lip grasped with the single tooth tenaculum and 9 gauge plastic suction curette was placed into the uterus and suction was activated and uterine contents were suctioned. Subsequently size 5 surgical curette was used to empty the uterus from additional products of conception. Suction was repeated once more. Pitocin was administered, uterus contracted. Patient tolerated procedure well. Sponge and instrument counts was correct x2. Estimated blood loss was 200 mL. Patient received 400 mL of fluids. Aris BUCKLEY/[id number]
--- NOTE | 2017-01-16 16:43 | PATH ---
Surgical Pathology Report Patient Name: MIRANDA SIERRA Med. Rec. #: [id number] /Age/Gender: 1980 (Age: 36) / F Account: [id number] Location: AMBULATORY SURG Taken: 01/13/2017 Received: 01/15/2017 Reported: 01/16/2017 Physicians: Aris Watson M.D. Specimen(s) Received PRODUCTS OF CONCEPTION Clinical History Retained products of conception Final Diagnosis UTERINE CONTENTS, EVACUATION: DEGENERATING CHORIONIC VILLI CONSISTENT WITH PORTIONS OF PLACENTAL TISSUE, ALONG WITH NECROTIC DECIDUA AND PORTIONS OF ENDOMETRIUM. AREAS OF CALCIFICATION ARE PRESENT. CLOTTED BLOOD IS PRESENT. NO NEOPLASM IS IDENTIFIED. Comment: See also [id number]. Electronically Signed Juan M Schroeder M.D. Gross Description Received fresh labeled "products of conception," is a 19.5 x 13.5 x 1.0 cm aggregate of red-brown soft tissue fragments admixed with abundant blood clot. No definite villous tissue or somatic tissues identified. A community engagement representative portion is submitted in 3 cassettes. /01/15/2017 saudi01/15/2017
== END 2017-01-13 23:30 | disposition home or self-care (01) ==
LOC: JER 13:57 → JOR 15:34 → JASUSAT 15:34 → J3W 19:30 → JOR 23:30
PROVIDERS: ATTEND Obstetrics & Gynecology
PROC: 10D17ZZ Extraction of Products of Conception, Retained, Via Natural or Artificial Opening (ICD-10-PCS; principal; 2017-01-13 16:33)
DX: O73.1 Retained portions of placenta and membranes, without hemorrhage (principal)
CPT/HCPCS: 36415; 80053; 81003; 81015; 85025; 85610; 85730; 86850; 86900; 86901; 87086; 87186; 88305-TC; 93970-TC; 94760; 99285-25

== ENCOUNTER → 2017-08-10 | Day surgery (SDC) | payer BC ==
--- NOTE | 2017-08-13 14:15 | PATH ---
Surgical Pathology Report Patient Name: MIRANDA SIERRA [facility]. Rec. #: [id number] /Age/Gender: 1980 (Age: 36) / F Account: [id number] Location: [facility] RADIOLOGY U Taken: 08/10/2017 Received: 08/10/2017 Reported: 08/13/2017 Physicians: Lore Roblero M.D. Specimen(s) Received RIGHT BREAST 4 :00 10 CFN CORE BIOPSY Clinical History Non-palpable lesion Ultrasound findings: Probably benign Final Diagnosis BREAST, RIGHT, 4:00, 10 CM FN, CORE BIOPSY: BENIGN BREAST TISSUE SHOWING FIBROADENOMATOID CHANGE. Electronically Signed Bhakti Ramirez M.D. Gross Description Received in formalin, labeled "right breast 4:00 10 cfn" I3 cores of light melendez and yellow-melendez tissue, ranging from 1.4-2.0 cm in length with a diameter up to 0.2 cm. Entirely submitted one cassette. Time to formalin fixation: < 1 minute Total formalin fixation time: Approximately 6 hours
--- NOTE | 2017-08-13 19:39 | OP ---
DATE OF OPERATION: 08/10/2017 PREOPERATIVE DIAGNOSIS: Right breast mass, 4 o'clock, 10 cm from the nipple. POSTOPERATIVE DIAGNOSIS: Right breast mass, 4 o'clock, 10 cm from the nipple. PROCEDURE: Right breast ultrasound-guided core biopsy with clip placement. ANESTHESIA: Local. ATTENDING SURGEON: Lore Roblero MD ESTIMATED BLOOD LOSS: Minimal. COMPLICATIONS: None. DESCRIPTION OF PROCEDURE: Patient was made aware of the risks and benefits of the procedure and consented. She was placed in a supine position. Under sterile conditions with 1% lidocaine for local anesthesia, a small alivia was made in the skin. Using a 13-gauge suction biopsy device via lateral approach under ultrasound guidance, multiple cores were obtained and submitted to Pathology. Likewise, under ultrasound guidance, a U-shaped clip was placed into the biopsy region. Well tolerated by the patient. Steri-Strips and a sterile bandage were applied. We will contact her with results. LORE ROBLERO M.D. [id number]
== END | disposition home or self-care (01) ==
LOC: FRADUS-SUR 12:41
PROVIDERS: ATTEND Surgery Surgical Oncology
PROC: 0HBT3ZX Excision of Right Breast, Percutaneous Approach, Diagnostic (ICD-10-PCS; principal; 2017-08-10)
DX: N63.14 Unspecified lump in the right breast, lower inner quadrant (principal); N64.89 Other specified disorders of breast
CPT/HCPCS: 19083; 77065-TC; 87899; 88305-TC; A4648

== ENCOUNTER 2025-03-11 05:42 | Day surgery (SDC) | payer BC ==
[2025-03-05 13:26] VITALS: BMI 31.1
[2025-03-11 08:43] VITALS: RESP 12
[2025-03-11 09:56] VITALS: TEMP 97.9
[2025-03-11 10:35] VITALS: BP 138/72; PULSE 56
== END 2025-03-11 11:00 | disposition home or self-care (01) ==
LOC: JASU-ENDO 05:42
PROVIDERS: ATTEND Internal Medicine Gastroenterology
PROC: 0DJD8ZZ Inspection of Lower Intestinal Tract, Via Natural or Artificial Opening Endoscopic (ICD-10-PCS; principal; 2025-03-11 09:00)
DX: Z12.11 Encounter for screening for malignant neoplasm of colon (principal); K64.8 Other hemorrhoids; K63.89 Other specified diseases of intestine; K59.00 Constipation, unspecified